=== PATIENT | female | born 1980 | race Caucasian/White ===

== ENCOUNTER 2016-08-09 20:52 | Emergency (ER) | payer OTHER ==
[~2016-08-09] VITALS: Ht 167.6 cm; Wt 109.7 kg
[~2016-08-09 20:52] MED LIST: BENTYL20 MG PO; CITRATE OF MAG296 ML PO; CONSTULOSE10 GM/15 M PO; FLUOXETINE HCL20 MG PO; HYDROCODON-ACE1 EAC7 PO; LITHIUM CARBON300 M1 PO; LITHIUM CARBON300 MG PO; MEDROXYPROGESTE10 MG PO; METHADONE HCL40 MG PO; MICROGESTIN1 EAC1 PO; PROAIR HFA8.5 GM IH; PROMETHAZINE HC25 M1 PO; SUBOXONE 8 MG-1 EAC2 SL; VICODIN,LORT1 TABLET PO; [UNRECOGNIZED DRUG - OTHER] PO
[2016-08-09 21:27] LABS: HEMATOCRIT 39.9 % (36.0-46.0); MCH 29.5 PG (29.0-34.0); MCHC 32.8 G/DL (30.0-36.0); MCV 89.9 FL (83-99); MEAN PLAT.VOLUME 9.6 uM^3 (9.5-12.4); NRBC (%) 0.4 /100 WBC (0-0); PLATELET COUNT 203 K/uL (156-360); RBC DIS.WIDTH-CV 12.5 % (11.8-14.6); RBC DIS.WIDTH-SD 41.4 % (39-53); RED BLOOD COUNT 4.44 M/uL (3.80-5.20); WHITE BLOOD COUNT 5.2 K/uL (4.1-10.2)
[2016-08-09 21:38] LABS: CHLORIDE 111 mEq/L (99-109); POTASSIUM 5.1 mEq/L (3.7-5.4); SODIUM 143 mEq/L (136-147)
[2016-08-09 21:40] LABS: GLUCOSE 121 mg/dL (70-99)
[2016-08-09 21:41] LABS: ANION GAP 7 MEQ/L (2-14)
[2016-08-09] MEDS ORDERED: MICROGESTIN FE1 EACH PO (21:41)
[2016-08-09] MEDS ORDERED: PROMETHAZINE HC25 M1 PO (21:41)
[2016-08-09] MEDS ORDERED: MOBIC15 MG PO (21:42)
[2016-08-09 21:44] LABS: GFR ESTIMATE (CALCULATED) > 59 mL/min/
[2016-08-09 21:45] LABS: UREA NITROGEN (BUN) 9 mg/dL (9-23)
[2016-08-09 21:49] LABS: TROP-I INTERPRETATION NEGATIVE; TROPONIN-I 0.01 ng/mL (0.0-0.30)
[2016-08-09 22:18] LABS: D-DIMER ELISA 0.29 mg/L FEU (< 0.57)
[2016-08-09] MEDS ORDERED: BENADRYL50 MG PO (22:51)
[2016-08-09] MEDS ORDERED: PEPCID20 MG PO (22:51)
[2016-08-09 23:21] VITALS: BP 149/64
== END 2016-08-09 23:22 | disposition home or self-care (01) ==
LOC: EME 20:52
DX: T78.40XA Allergy, unspecified, initial encounter (principal); F41.0 Panic disorder [episodic paroxysmal anxiety]; Z87.442 Personal history of urinary calculi; F17.200 Nicotine dependence, unspecified, uncomplicated
CPT/HCPCS: 71020; 80048; 84484; 85027; 85379; 93005; 99281; 99284